=== PATIENT | female | born 1965 | race Caucasian/White ===

== ENCOUNTER 2017-01-07 07:59 | Day surgery (SDC) | payer BC, OTHER ==
[~2017-01-07 07:59] MED LIST: Bupivacaine 0.5% 30 ML SDV ONE; Lactated Ringers 1,000 ML IV SCH; Lidocaine 1%/Sod Bicarbonate in NS 8.4% 1 ML Syringe IV PRN; Sodium Chloride 0.9% 10 ML Syringe FLUSH PRN
--- NOTE | 2017-01-07 09:16 | PCM.PREANE ---
Preanesthetic Assessment - Anesthesia/Transfusion/Family Hx Anesthesia History: Prior Anesthesia Without Reaction Family History of Anesthesia Reaction: No Transfusion History: No Prior Transfusion(s) Intubation History: Unknown - Review of Systems General: No Symptoms Pulmonary: No Symptoms Cardiovascular: No Symptoms Gastrointestinal: No Symptoms Neurological: No Symptoms Other: Reports: None - Physical Assessment NPO Status Date: 01/06/17 NPO Status Time: 21:00 O2 Sat by Pulse Oximetry: 98 Respiratory Rate: 16 Vital Signs: Last Vital Signs Temp 37.1 C 01/07/17 08:00 Pulse 71 01/07/17 08:00 Resp 16 01/07/17 08:00 BP 125/75 01/07/17 08:00 Pulse Ox 98 01/07/17 08:00 Height: 1.7 m Weight: 71.668 kg ASA Class: 1 Mental Status: Alert & Oriented x3 Airway Class: Mallampati = 1 Dentition: Reports: Normal Dentition Thyro-Mental Finger Breadths: 3 Mouth Opening Finger Breadths: 3 ROM/Head Extension: Full Lungs: Clear to Auscultation, Normal Respiratory Effort Cardiovascular: Regular Rate, Regular Rhythm - Lab Values: Laboratory Last Values WBC 7.42 K/mm3 (3.98-10.04) 12/18/16 10:32 RBC 4.44 M/mm3 (3.98-5.22) 12/18/16 10:32 Hgb 14.0 gm/L (11.2-15.7) 12/18/16 10:32 Hct 41.7 % (34.1-44.9) 12/18/16 10:32 MCV 93.9 fl (79.4-94.8) 12/18/16 10:32 MCH 31.5 pg (25.6-32.2) 12/18/16 10:32 MCHC 33.6 g/dl (32.2-35.5) 12/18/16 10:32 RDW Std Deviation 44.5 fL (36.4-46.3) 12/18/16 10:32 Plt Count 276 K/mm3 (182-369) 12/18/16 10:32 MPV 9.8 fl (9.4-12.3) 12/18/16 10:32 Neut % (Auto) 68.7 % (34.0-71.1) 12/18/16 10:32 Lymph % (Auto) 22.1 % (19.3-51.7) 12/18/16 10:32 Bracken % (Auto) 6.2 % (4.7-12.5) 12/18/16 10:32 Eos % (Auto) 2.4 (0.7-5.8) 12/18/16 10:32 Baso % (Auto) 0.5 % (0.1-1.2) 12/18/16 10:32 Neut # (Auto) 5.09 K/mm3 (1.56-6.13) 12/18/16 10:32 Lymph # (Auto) 1.64 K/mm3 (1.18-3.74) 12/18/16 10:32 Bracken # (Auto) 0.46 K/mm3 (0.24-0.36) H 12/18/16 10:32 Eos # (Auto) 0.18 K/mm3 (0.04-0.36) 12/18/16 10:32 Baso # (Auto) 0.04 K/mm3 (0.01-0.08) 12/18/16 10:32 Creatinine 0.9 mg/dL (0.55-1.02) 12/18/16 10:32 Est Cr Clr Drug Dosing TNP 12/18/16 10:32 Estimated GFR (MDRD) > 60 mL/min (>60) 12/18/16 10:32 Urine Color Light yellow (Yellow) 12/18/16 10:32 Urine Appearance Clear (Clear) 12/18/16 10:32 Urine pH 7.5 (5.0-8.0) 12/18/16 10:32 Ur Specific [place] 1.020 (1.005-1.030) 12/18/16 10:32 Urine Protein Negative (Negative) 12/18/16 10:32 Urine Glucose (UA) Negative (Negative) 12/18/16 10:32 Urine Ketones Negative (Negative) 12/18/16 10:32 Urine Occult Blood Negative (Negative) 12/18/16 10:32 Urine Nitrite Negative (Negative) 12/18/16 10:32 Urine Bilirubin Negative (Negative) 12/18/16 10:32 Urine Urobilinogen 0.2 (0.2-1.0) 12/18/16 10:32 Ur Leukocyte Esterase Negative (Negative) 12/18/16 10:32 - Imaging/EKG Impressions: Reviewed. NSR. - Allergies Allergies/Adverse Reactions: Allergies Allergy/AdvReac Type Severity Reaction Status Date / Time No Known Allergies Allergy Verified 01/07/17 08:37 - Acknowledgements Anesthesia Type Planned: General Anesthesia Pt an Appropriate Candidate for the Planned Anesthesia: Yes Alternatives and Risks of Anesthesia Discussed w Pt/Guardian: Yes Pt/Guardian Understands and Agrees with Anesthesia Plan: Yes PreAnesthesia Questionnaire Cardiovascular History: Reports: High Cholesterol Respiratory History: Reports: None Gastrointestinal History: Reports: None Genitourinary History: Reports: None ANDROID UI DEVELOPER History: Other OB/BYN History: TVH, Musculoskeletal History: Reports: None Neurological History: Reports: None Psychiatric History: Reports: None Endocrine/Metabolic History: Reports: None Hematologic History: Reports: None Immunologic History: Reports: None Oncologic (Cancer) History: Reports: None Dermatologic History: Reports: None - Past Surgical History Head Surgeries/Procedures: Reports: None HEENT Surgical History: Reports: Tonsillectomy Cardiovascular Surgical History: Reports: Other (See Below) Other Cardiovascular Surgeries/Procedures: varicose vein surgery x2 Respiratory Surgical History: Reports: None GI Surgical History: Reports: None Female Surgical History: Reports: Hysterectomy Male Surgical History: Reports: None Endocrine Surgical History: Reports: None Neurological Surgical History: Reports: None Musculoskeletal Surgical History: Reports: None Oncologic Surgical History: Reports: None Dermatological Surgical History: Reports: None - SUBSTANCE USE Smoking Status *Q: Never Smoker Recreational Drug Use History: No - HOME MEDS Home Medications: Home Meds Calcium Carb & Citrate/Vit D3 [Calcium + D3 ER Tablet] 1 tab PO DAILY 01/06/17 [ History] Fish Oil/[place]-3 Fatty Acids [Fish Oil 1,000 MG] 1 gm PO DAILY 01/06/17 [History ] Multivitamin [Multi-Day Vitamins] 1 tab PO DAILY 01/06/17 [History] PARoxetine HCl [Paroxetine HCl] 10 mg PO DAILY 01/06/17 [History] atorvaSTATin [Lipitor] 20 mg PO DAILY 01/06/17 [History] - CURRENT (IN HOUSE) MEDS Current Meds: Current Medications Lactated Ringer's (Ringers, Lactated) 1,000 mls @ 125 mls/hr IV ASDIRECTED RADHA Stop: 01/07/17 18:00 Last Admin: 01/07/17 08:15 Dose: 125 mls/hr Lidocaine/Sodium Bicarbonate (Buffered Lidocaine 1% In Ns 8.4%) 0.25 ml IV ONETIME PRN PRN Reason: Prior to IV Start Stop: 01/07/17 18:00 Last Admin: 01/07/17 08:14 Dose: 0.25 ml Sodium Chloride (Saline Flush) 10 ml FLUSH ASDIRECTED PRN PRN Reason: Keep Vein Open Stop: 01/07/17 18:00 Discontinued Medications Bupivacaine HCl (Marcaine 0.5%) Confirm Administered Dose 30 ml .ROUTE .STK-MED ONE Stop: 01/07/17 07:59
[2017-01-07] MEDS ORDERED: ceFAZolin 1 GM Vial ONE (09:41)
[2017-01-07] MEDS ORDERED: Ondansetron 4 MG/2 ML SDV ONE (09:41)
[2017-01-07] MEDS ORDERED: fentaNYL 250 MCG/5 ML SDV ONE (09:41)
[2017-01-07] MEDS ORDERED: Lactated Ringers 1,000 ML ONE (09:41)
[2017-01-07] MEDS ORDERED: Rocuronium 50 MG/5 ML Vial ONE (09:41)
[2017-01-07] MEDS ORDERED: Midazolam 1 MG/ML 2 ML SDV ONE (09:41)
[2017-01-07] MEDS ORDERED: Propofol 200 MG/20 ML SDV ONE (09:41)
[2017-01-07] MEDS ORDERED: Dexamethasone 4 MG/ML 5 ML MDV ONE (09:43)
[2017-01-07] MEDS ORDERED: fentaNYL 100 MCG/2 ML SDV IVPUSH PRN (10:00)
[2017-01-07] MEDS ORDERED: HYDROmorphone 0.5 MG/0.5 ML Syringe IVPUSH PRN (10:00)
[2017-01-07] MEDS ORDERED: Haloperidol Lactate 5 MG/ML SDV IVPUSH ONE (10:00)
[2017-01-07] MEDS ORDERED: Ketorolac 30 MG/ML SDV ONE (10:17)
[2017-01-07] MEDS ORDERED: Lidocaine 1% 4 ML ONE (10:17)
[2017-01-07] MEDS ORDERED: Neostigmine Methylsulfate 1 MG/ML 5 ML Syringe ONE (10:18)
[2017-01-07] MEDS ORDERED: Acetaminophen/oxyCODONE 325-5 MG Tab PO PRN (10:37)
[2017-01-07] MEDS ORDERED: Ondansetron 4 MG/2 ML SDV IVPUSH PRN (10:37)
[2017-01-07] MEDS ORDERED: Ketorolac 30 MG/ML SDV IVPUSH SCH (10:45)
--- NOTE | 2017-01-07 10:45 | PCM.OPNOTE ---
- General Post-Op/Procedure Note Date of Surgery/Procedure: 01/07/17 Operative Procedure(s): Laparoscopy with bilateral salpingo-oophorectomy, lysis of pelvic adhesions Findings: Normal appearing ovaries and distal fallopian tubes. Patient is status post hysterectomy. Appendix was not inflamed. Liver edge and gallbladder noninflamed and normal in appearance Pre Op Diagnosis: Family history of breast cancermother and sister with breast cancer. Post-Op Diagnosis: Same Anesthesia Technique: General ET Tube Other Anesthesia Type: Marcaine 0.5%local-15 mL total Primary Surgeon: Ashwin Kntot Secondary Surgeon: Tom De La Fuente Anesthesia Provider: Micki Jennings Software Configuration Analyst: Angelica Prieto Software Configuration Analyst: Juana Sams Reason Software Configuration Analyst Was Necessary: Retraction, patient safety Role of Software Configuration Analyst: Retraction Pathology: Bilateral tubes and ovaries sent in one specimen container Fluid Replacement, Intraop: 1,500 (Crystalloid) Output, Urine Amount: 250 EBL in mLs: 5 Drain/Tube Comments:: Indwelling bladder catheter during procedure only Complications: None Condition: Good Free Text/Narrative:: Surgeon duration: 63 minutes Procedure: Patient is taken operative placed in supine position on the operative table. She received 2 g of Ancef preoperatively for infection prophylaxis and had sequential compression stockings in place for DVT prophylaxis. She was administered general endotracheal anesthesia. After adequate anesthesia the patient was placed in a dorsal lithotomy position, prepped and draped in usual fashion and a Boogie catheter was placed. A stick sponge was placed in the vagina. Infraumbilical and suprapubic incision sites were then developed using approximately 3-5 mL of Marcaine 0.5% at each site. Eventually a 10 mm port was placed in the suprapubic site and a 5 mm port was placed in the right abdomen as a third port site. Pneumoperitoneum was established prior to the initial port placement. An fallopian tube were elevated and using an Enseal Monnig scalpels the mesosalpinx and infundibulopelvic ligament were then developed effectively removing the tube and ovary. Same was then done on the right side. Patient had some mild adhesions involving the bowel in the right lower quadrant and the vaginal cuff areas. These were taken down using the same device. At this time a an Endo Catch bag was placed through the suprapubic port and both ovaries removed in 2 separate bags. The areas found to be hemostatically intact. The lower sleeve was removed and the fascial layer was closed with [id number] suture of 0 Vicryl. The reversal of the pneumoperitoneum all 3 cutaneous incision sites were closed with interrupted sutures of 3-0 Monocryl. The incisions were further approximated with Dermabond skin glue. The patient was awakened from general endotracheal anesthesia and left the procedure room in good condition. It should be noted that the catheter and the stick sponge removed prior to the reversal of general endotracheal anesthesia.
--- NOTE | 2017-01-07 10:51 | PCM.POSTAN ---
POST ANESTHESIA ASSESSMENT - MENTAL STATUS Mental Status: Alert, Oriented - VITAL SIGNS Pulse Rate: 84 SaO2: 97 Resp Rate: 16 Blood Pressure: 113/58 Temperature: 37.2 C - RESPIRATORY Respiratory Status: Respiratory Rate WNL, Airway Patent, O2 Saturation Stable, Supplemental Oxygen - CARDIOVASCULAR CV Status: Pulse Rate WNL, Blood Pressure Stable - GASTROINTESTINAL GI Status: No Symptoms - PAIN Pain Score: 0 - POST OP HYDRATION Hydration Status: Adequate & Stable
== END 2017-01-07 12:35 | disposition home or self-care (01) ==
LOC: JD.SDS 07:59
PROVIDERS: ATTEND Obstetrics & Gynecology
DX: Z80.3 Family history of malignant neoplasm of breast (principal); E78.00 Pure hypercholesterolemia, unspecified; Z79.899 Other long term (current) drug therapy; Z90.710 Acquired absence of both cervix and uterus
CPT/HCPCS: 36415; 58661; 81003; 82565; 85025; 93005; J0690; J1100; J1885; J2250; J2405; J2710; J3010; J7120; 00840; J2704